=== PATIENT | male | born 1955 | race Caucasian/White ===

== ENCOUNTER 2018-08-01 09:54 | Emergency (ER) | payer BC, OTHER ==
--- OUTSIDE RECORDS SUMMARY | 2018-08-01 09:59 | XMS REPORT ---
:1955 Author Organization [facility] Address [address] [place] [address] Care Team Providers Name Role Phone FRANCES VILLAClayton Unavailable Unavailable Problems This patient has no known problems. Allergies, Adverse Reactions, Alerts This patient has no known allergies or adverse reactions. Medications This patient has no known medications. Results Test Description Test Time Test Comments Text Results Atomic Results Result Comments BASIC METABOLIC PANEL 2017-02-28 12:09:00 Test Item Value Reference Range Comments SODIUM (BEAKER) (test 139 meq/L 136-145 zfxx=414) POTASSIUM (BEAKER) (test 4.5 meq/L 3.5-5.1 syju=704) CHLORIDE (BEAKER) (test 104 meq/L 98-107 hqvc=707) CO2 (BEAKER) (test 26 meq/L 22-29 clvo=238) BLOOD UREA NITROGEN 18 mg/dL 7-21 (BEAKER) (test uylw=638) CREATININE (BEAKER) (test 0.77 mg/dL 0.57-1.25 rxbz=285) GLUCOSE RANDOM (BEAKER) 100 mg/dL 70-105 (test cugp=161) CALCIUM (BEAKER) (test 9.1 mg/dL 8.4-10.2 nyzi=986) EGFR (BEAKER) (test 102 mL/min/1.73 sq m ESTIMATED GFR IS NOT zzhl=8444) ACCURATE CREATININE CLEARANCE IN PREDICTING GLOMERULAR FILTRATION RATE. ESTIMATED GFR IS NOT APPLICABLE FOR DIALYSIS PATIENTS. CBC W/PLT COUNT & AUTO [id number] 12:03:00 Test Item Value Reference Range Comments WHITE BLOOD CELL COUNT (BEAKER) (test ejjq=866) 4.9 K/ L 4.0-10.0 RED BLOOD CELL COUNT (BEAKER) (test wmey=120) 4.18 M/ L 4.20-5.80 HEMOGLOBIN (BEAKER) (test mfaf=421) 14.1 GM/DL 13.0-16.8 HEMATOCRIT (BEAKER) (test rfji=606) 41.1 % 40.0-50.0 MEAN CORPUSCULAR VOLUME (BEAKER) (test tsjx=773) 98.4 fL 82.0-98.0 MEAN CORPUSCULAR HEMOGLOBIN (BEAKER) (test 33.7 pg 27.0-33.0 pzli=326) MEAN CORPUSCULAR HEMOGLOBIN CONC (BEAKER) (test 34.2 GM/DL 32.0-36.0 khon=737) RED CELL DISTRIBUTION WIDTH (BEAKER) (test 13.3 % 10.3-14.2 xwpl=297) PLATELET COUNT (BEAKER) (test safx=068) 152 K/CU MM 150-430 MEAN PLATELET VOLUME (BEAKER) (test icgl=800) 6.3 fL 6.5-10.5 NUCLEATED RED BLOOD CELLS (BEAKER) (test 0 /100 WBC 0-0 grpr=440) NEUTROPHILS RELATIVE PERCENT (BEAKER) (test 63 % ilgq=533) LYMPHOCYTES RELATIVE PERCENT (BEAKER) (test 28 % fqiy=626) MONOCYTES RELATIVE PERCENT (BEAKER) (test 7 % qekc=736) EOSINOPHILS RELATIVE PERCENT (BEAKER) (test 2 % tiwj=367) BASOPHILS RELATIVE PERCENT (BEAKER) (test 0 % cjax=406) NEUTROPHILS ABSOLUTE COUNT (BEAKER) (test 3.08 K/ L 1.80-8.00 zwrv=453) LYMPHOCYTES ABSOLUTE COUNT (BEAKER) (test 1.35 K/ L 1.48-4.50 zzsh=994) MONOCYTES ABSOLUTE COUNT (BEAKER) (test 0.33 K/ L 0.00-1.30 nmtc=727) EOSINOPHILS ABSOLUTE COUNT (BEAKER) (test 0.09 K/ L 0.00-0.50 bfwn=897) BASOPHILS ABSOLUTE COUNT (BEAKER) (test 0.02 K/ L 0.00-0.20 rvkl=668) 0.00VITAMIN [id number] 14:04:00 Test Item Value Reference Range Comments VITAMIN B12 (BEAKER) (test hggy=984) 710 pg/mL 213-816 TSH/FREE T4 IF [id number] 14:04:00 Test Item Value Reference Range Comments THYROID STIMULATING HORMONE (BEAKER) (test 0.52 uIU/mL 0.35-4.94 kyyc=946) HEMOGLOBIN [id number] 13:46:00 Test Item Value Reference Range Comments HEMOGLOBIN A1C (BEAKER) (test oyli=145) 5.1 % 4.3-6.1 LIPID [id number] 13:39:00 Test Item Value Reference Range Comments TRIGLYCERIDES (BEAKER) (test sbqx=399) 37 mg/dL CHOLESTEROL (BEAKER) (test ekqx=952) 242 mg/dL HDL CHOLESTEROL (BEAKER) (test gbjs=709) 68 mg/dL LDL CHOLESTEROL CALCULATED (BEAKER) (test 167 mg/dL icak=746) Triglyceride Reference Range: Low Risk <150 Borderline 150- 199 High Risk 200-499 Very High Risk >=500Cholesterol Reference Range: Low Risk <200 Borderline 200-239 High Risk > 240HDL Cholesterol Reference Range: Low Risk >=60 High Risk <40LDL Cholesterol Reference Range: Optimal <100 Near Optimal 100-129 Borderline 130-159 High 160-189 Very High >=190
--- OUTSIDE RECORDS SUMMARY | 2018-08-01 09:59 | XMS REPORT | Clinical Summary ---
:1955 Author Organization [facility] Address [address] [place] [address] Care Team Providers Name Role Phone Unavailable Primary Care Provider Unavailable Allergies No Known Allergies Medications Medication Sig Dispensed Refills Start Date End Date Status multivitamin per Take 1 tablet 0 Active tablet by mouth daily. b complex vitamins Take 1 tablet 0 Active tablet by mouth daily. aspirin 81 MG chewable Take 1 tablet 30 tablet 11 02/28/2017 02/28/2018 tablet (81 mg total) by mouth daily. atorvastatin (LIPITOR) Take 1 tablet 30 tablet 11 02/28/2017 02/28/2018 80 MG tablet (80 mg total) by mouth nightly. Active Problems Problem Noted Date Transient cerebral ischemia, unspecified type 02/28/2017 TIA (transient ischemic attack) 02/27/2017 Social History Tobacco Use Types Packs/Day Years Used Date Never Smoker Sex Assigned at Date Recorded Not on file Job Start Date Occupation Industry Not on file Not on file Not on file Travel History Travel Start Travel End No recent travel history available. Last Filed Vital Signs Not on file Plan of Treatment Not on file Results Not on fileafter 07/31/2017 Insurance Payer Benefit Plan / Group Subscriber ID Type Phone Address [facility] [employer] xxxxxxxxx [employer] - [employer] HMO POS QPOS xxxxxxxxx HMO/POS RD (Home) [address] [place] [id number] Advance Directives For more information, please contact:[place] [address] [place], [place] [phone] Code Status Date Activated Date Inactivated Comments Full Code 02/27/2017 11:48 AM 02/28/2017 8:08 PM This code status was determined by: Patient
[2018-08-01] MEDS ORDERED: ONDANSETRON 4 MG/2 ML VIAL ONE (10:27)
[2018-08-01] MEDS ORDERED: MORPHINE 4 MG/ML SYR ONE (10:27)
[2018-08-01 10:35] LABS: Absolute Lymphocytes (CBC) 0.9 K/uL (0.7-4.9); Absolute Monocytes 0.2 K/uL (0.1-1.3); Absolute Neutrophil 4.2 K/uL (1.8-8.0); Basophils % 0.7 % (0-1.3); Eosinophils % 0.8 % (0-4.4); Hematocrit 41.9 % (39.6-49.0); MCH 31.4 pg (27.0-35.0); MCV 92.3 fL (80-100); MPV 7.3 fL (7.6-11.3); Monocytes % 3.2 % (3.3-12.3); RBC Red Blood Cell Count 4.54 M/uL (4.33-5.43)
[2018-08-01 10:47] LABS: Potassium 3.7 mmol/L (3.5-5.1)
--- NOTE | 2018-08-01 10:51 | EDPHYS ---
Physician Documentation [facility] Name: Srinivasan Armstrong Age: 62 yrs Sex: Male : 1955 Arrival Date: 08/01/2018 Time: 10:00 Bed 3 Private MD: None, None ED Physician Calos Flores HPI: 08/01 10:41 This 62 yrs old Male presents to ER via Wheelchair with complaints of gs Abdominal Pain. 10:41 The patient presents with swelling, that is moderate, of the right inguinal area. gs Onset: The symptoms/episode began/occurred today. Associated signs and symptoms: Pertinent negatives: abdominal pain, nausea, vomiting. Severity of symptoms: At their worst the symptoms were moderate, in the emergency department the symptoms are unchanged. The patient has experienced similar episodes in the past, multiple times, chronically. The patient has not recently seen a physician. Historical: - Allergies: 10:16 No Known Allergies; aa5 - PMHx: 10:16 TIA 2017; aa5 - PSHx: 10:16 right shoulder; aa5 - Immunization history:: Flu vaccine is not up to date. - Social history:: Smoking status: Patient/guardian denies using tobacco. - Ebola Screening: : No symptoms or risks identified at this time. ROS: 10:41 All other systems are negative. gs Exam: 10:41 Head/Face: Normocephalic, atraumatic. Eyes: Pupils equal round and reactive to light, gs extra-ocular motions intact. Lids and lashes normal. Conjunctiva and sclera are non-icteric and not injected. Cornea within normal limits. Periorbital areas with no swelling, redness, or edema. ENT: Nares patent. No nasal discharge, no septal abnormalities noted. Tympanic membranes are normal and external auditory canals are clear. Oropharynx with no redness, swelling, or masses, exudates, or evidence of obstruction, uvula midline. Mucous membranes moist. Neck: Trachea midline, no thyromegaly or masses palpated, and no cervical lymphadenopathy. Supple, full range of motion without nuchal rigidity, or vertebral point tenderness. No Meningismus. 10:41 Chest/axilla: Normal chest wall appearance and motion. Nontender with no deformity. No lesions are appreciated. Cardiovascular: Regular rate and rhythm with a normal S1 and S2. No gallops, murmurs, or rubs. Normal PMI, no JVD. No pulse deficits. Respiratory: Lungs have equal breath sounds bilaterally, clear to auscultation and percussion. No rales, rhonchi or wheezes noted. No increased work of breathing, no retractions or nasal flaring. Abdomen/GI: Soft, non-tender, with normal bowel sounds. No distension or tympany. No guarding or rebound. No evidence of tenderness throughout. Skin: Warm, dry with normal turgor. Normal color with no rashes, no lesions, and no evidence of cellulitis. MS/ Extremity: Pulses equal, no cyanosis. Neurovascular intact. Full, normal range of motion. Neuro: Awake and alert, GCS 15, oriented to person, place, time, and situation. Cranial nerves II-XII grossly intact. Motor strength 5/5 in all extremities. Sensory grossly intact. Cerebellar exam normal. Normal gait. 10:41 Constitutional: The patient appears alert, awake. 10:41 Constitutional: The patient appears uncomfortable. 10:41 : Male external genitalia: swelling, tenderness, is palpated in the right inguinal area, that is moderate. Vital Signs: 10:16 BP 154 / 77; Pulse 74; Resp 18 S; Temp 98.8(O); Pulse Ox 100% on R/A; Weight 87.09 kg aa5 (R); Height 5 ft. 11 in. (180.34 cm) (R); Pain 8/10; 11:00 BP 148 / 76; Pulse 70; Resp 15; Pulse Ox 100% on R/A; Pain 0/10; hb 10:16 Body Mass Index 26.78 (87.09 kg, 180.34 cm) aa5 MDM: 10:18 Patient medically screened. 10:41 Differential diagnosis: direct hernia. indirect hernia. incarcerated. Data reviewed: vital signs, nurses notes. Counseling: I had a detailed discussion with the patient and/or guardian regarding: the historical points, exam findings, and any diagnostic results supporting the discharge/admit diagnosis, the need for outpatient follow up. Response to treatment: the patient's symptoms have resolved after treatment, pt self reduced. 08/01 10:44 Order name: CBC with Automated Diff EDMS 08/01 10:48 Order name: Basic Metabolic Panel EDMS Administered Medications: No medications were administered Disposition: 08/01/18 10:50 Discharged to Home. Impression: Inguinal hernia. - Condition is Stable. - Discharge Instructions: Hernia, Adult, [id number]. - Medication Reconciliation Form, Thank You Letter, Antibiotic Education, Prescription Opioid Use form. - Follow up: Huan Thomson MD; When: 2 - 3 days; Reason: Re-evaluation by your physician. Signatures: Dispatcher [employer] EDJulia Christina RN RN aa5 Ariana Tijerina RN RN Calos Flores MD MD gs Corrections: (The following items were deleted from the chart) 11:14 10:50 08/01/2018 10:50 Discharged to Home. Impression: Inguinal hernia. Condition is hb Stable. Forms are Medication Reconciliation Form, Thank You Letter, Antibiotic Education, Prescription Opioid Use. Follow up: Huan Thomson; When: 2 - 3 days; Reason: Re-evaluation by your physician. gs
--- NOTE | 2018-08-01 10:51 | ER ---
Nurse's Notes [facility] Name: Srinivasan Armstrong Age: 62 yrs Sex: Male : 1955 Arrival Date: 08/01/2018 Time: 10:00 Bed 3 Private MD: None, None Diagnosis: Inguinal hernia Presentation: 08/01 10:05 Presenting complaint: Patient states: right groin pain and right testicular pain that aa5 began 2 weeks ago. Pt states "I was working today and the pain got way worse and I started breaking into a sweat". 10:05 Transition of care: patient was not received from another setting of care. Onset of aa5 symptoms was July 2018. Risk Assessment: Do you want to hurt yourself or someone else? Patient reports no desire to harm self or others. Initial Sepsis Screen: Does the patient meet any 2 criteria? No. Patient's initial sepsis screen is negative. Does the patient have a suspected source of infection? No. Patient's initial sepsis screen is negative. Care prior to arrival: None. 10:05 Method Of Arrival: Wheelchair aa5 10:05 Acuity: MEREDITH 2 aa5 Historical: - Allergies: 10:16 No Known Allergies; aa5 - PMHx: 10:16 TIA 2017; aa5 - PSHx: 10:16 right shoulder; aa5 - Immunization history:: Flu vaccine is not up to date. - Social history:: Smoking status: Patient/guardian denies using tobacco. - Ebola Screening: : No symptoms or risks identified at this time. Screenin:30 Abuse screen: Denies threats or abuse. Denies injuries from another. Nutritional hb screening: No deficits noted. Tuberculosis screening: No symptoms or risk factors identified. Fall Risk None identified. Assessment: 10:25 General: Appears in no apparent distress. Behavior is calm, cooperative. Pain: Pain hb currently is 7 out of 10 on a pain scale. Neuro: Level of Consciousness is awake, alert, obeys commands, Oriented to person, place, time, situation. Cardiovascular: Capillary refill < 3 seconds Patient's skin is warm and dry. Respiratory: Airway is patent Trachea midline Respiratory effort is even, unlabored, Respiratory pattern is regular, symmetrical, Breath sounds are clear bilaterally. GI: Abdomen is flat, Bowel sounds present X 4 quads. Abd is soft and non tender X 4 quads. : No signs and/or symptoms were reported regarding the genitourinary system. EENT: No signs and/or symptoms were reported regarding the EENT system. Derm: Skin is intact, is healthy with good turgor, Skin is pink, warm \\T\\ dry. Musculoskeletal: Reports right inguinal and right testicular pain. Vital Signs: 10:16 BP 154 / 77; Pulse 74; Resp 18 S; Temp 98.8(O); Pulse Ox 100% on R/A; Weight 87.09 kg aa5 (R); Height 5 ft. 11 in. (180.34 cm) (R); Pain 8/10; 11:00 BP 148 / 76; Pulse 70; Resp 15; Pulse Ox 100% on R/A; Pain 0/10; hb 10:16 Body Mass Index 26.78 (87.09 kg, 180.34 cm) [facility] ED Course: 10:00 Patient arrived in ED. mr 10:00 None, None is Private Physician. mr 10:05 Arm band placed on. [facility] 10:11 Triage completed. [facility] 10:13 Calos Flores MD is Attending Physician. gs 10:15 Patient has correct armband on for positive identification. Placed in gown. Bed in low hb position. Call light in reach. Side rails up X 1. 10:26 Inserted saline lock: 20 gauge in right antecubital area, using aseptic technique. hb Blood collected. 10:50 Huan Thomson MD is Referral Physician. gs 11:01 Ariana Tijerina RN is Primary Nurse. hb 11:03 No provider procedures requiring assistance completed. IV discontinued, intact, hb bleeding controlled, No redness/swelling at site. Pressure dressing applied. Administered Medications: No medications were administered Outcome: 10:50 Discharge ordered by . gs 11:03 Discharged to home ambulatory, with family. hb 11:03 Condition: stable 11:03 Discharge instructions given to patient, family, Instructed on discharge instructions, follow up and referral plans. medication usage, Demonstrated understanding of instructions, follow-up care, medications. 11:14 Patient left the ED. hb Signatures: Alma PrinceJulia RN RN [facility] Ariana Tijerina RN RN Calos Flores MD MD
== END 2018-08-01 11:14 | disposition home or self-care (01) ==
LOC: ER 09:54
DX: K40.90 Unilateral inguinal hernia, without obstruction or gangrene, not specified as recurrent (principal); Z86.73 Personal history of transient ischemic attack (TIA), and cerebral infarction without residual deficits
CPT/HCPCS: 36415; 80048; 85025; 99283; J2405

== ENCOUNTER 2019-08-07 07:17 | Day surgery (SDC) | payer OTHER ==
[2019-08-04 11:49] LABS: Absolute Lymphocytes (CBC) 1.1 K/uL (0.7-4.9); Basophils % 0.9 % (0-1.3); Hematocrit 41.3 % (39.6-49.0); Lymphocytes % 24.5 % (15.3-44.8); MPV 7.2 fL (7.6-11.3); RBC Red Blood Cell Count 4.51 M/uL (4.33-5.43)
--- NOTE | 2019-08-04 11:50 | RAD REPORT ---
EXAM DESCRIPTION: RAD - Chest Pa And Lat (2 Views) - 08/04/2019 11:40 am CLINICAL HISTORY: preop Chest pain. COMPARISON: <Comparisons> FINDINGS: The lungs are clear. The heart is normal in size. No displaced fractures. Evidence of prev ious right rotator cuff repair. IMPRESSION: No acute or concerning finding suspected.
[2019-08-04 12:00] LABS: BUN Blood Urea Nitrogen 25 mg/dL (7-18); Bicarbonate 29 mmol/L (21-32); Glucose Level 97 mg/dL (74-106); Potassium 4.1 mmol/L (3.5-5.1); Sodium Level 141 mmol/L (136-145)
--- NOTE | 2019-08-06 12:50 | EKG ---
Test Date: 2019-08-04 Test Time: 11:16:54 Processor Inspector: JP MEASUREMENT RESULTS: Intervals: Rate: 73 ME: 164 QRSD: 98 QT: 402 QTc: 442 [place]: P: 68 ME: 164 QRS: 65 T: 55 INTERPRETIVE STATEMENTS: Normal sinus rhythm Normal ECG Compared to ECG 02/27/2017 05:47:34 No significant changes Electronically Signed On 08-06-19 12:45:50 COLLECTIONS ATTORNEY by Aly Angeles
--- OUTSIDE RECORDS SUMMARY | 2019-08-07 07:30 | XMS REPORT ---
:1955 Author Organization [facility] Address [address] [place] [address] Care Team Providers Name Role Phone FRANCES [...] Comments SODIUM (BEAKER) (test 139 meq/L 136-145 foev=179) POTASSIUM (BEAKER) (test 4.5 meq/L 3.5-5.1 vnqp=263) CHLORIDE (BEAKER) (test 104 meq/L 98-107 yznt=489) CO2 (BEAKER) (test 26 meq/L 22-29 fqac=587) BLOOD UREA NITROGEN 18 mg/dL 7-21 (BEAKER) (test ehkl=704) CREATININE (BEAKER) (test 0.77 mg/dL 0.57-1.25 phxi=054) GLUCOSE RANDOM (BEAKER) 100 mg/dL 70-105 (test nbva=425) CALCIUM (BEAKER) (test 9.1 mg/dL 8.4-10.2 lzev=160) EGFR (BEAKER) (test 102 mL/min/1.73 sq m ESTIMATED GFR IS NOT tynn=6322) ACCURATE CREATININE CLEARANCE IN PREDICTING GLOMERULAR FILTRATION RATE. ESTIMATED GFR IS NOT APPLICABLE FOR DIALYSIS PATIENTS. CBC W/PLT COUNT & AUTO [id number] 12:03:00 Test Item Value Reference Range Comments WHITE BLOOD CELL COUNT (BEAKER) (test fyja=623) 4.9 K/ L 4.0-10.0 RED BLOOD CELL COUNT (BEAKER) (test eycj=764) 4.18 M/ L 4.20-5.80 HEMOGLOBIN (BEAKER) (test apli=184) 14.1 GM/DL 13.0-16.8 HEMATOCRIT (BEAKER) (test dbxc=873) 41.1 % 40.0-50.0 MEAN CORPUSCULAR VOLUME (BEAKER) (test vmxz=304) 98.4 fL 82.0-98.0 MEAN CORPUSCULAR HEMOGLOBIN (BEAKER) (test 33.7 pg 27.0-33.0 eoil=304) MEAN CORPUSCULAR HEMOGLOBIN CONC (BEAKER) (test 34.2 GM/DL 32.0-36.0 jqjx=846) RED CELL DISTRIBUTION WIDTH (BEAKER) (test 13.3 % 10.3-14.2 uhtk=976) PLATELET COUNT (BEAKER) (test ppba=502) 152 K/CU MM 150-430 MEAN PLATELET VOLUME (BEAKER) (test kqwi=789) 6.3 fL 6.5-10.5 NUCLEATED RED BLOOD CELLS (BEAKER) (test 0 /100 WBC 0-0 vzgn=967) NEUTROPHILS RELATIVE PERCENT (BEAKER) (test 63 % wnoa=431) LYMPHOCYTES RELATIVE PERCENT (BEAKER) (test 28 % isww=186) MONOCYTES RELATIVE PERCENT (BEAKER) (test 7 % vchh=654) EOSINOPHILS RELATIVE PERCENT (BEAKER) (test 2 % pzun=129) BASOPHILS RELATIVE PERCENT (BEAKER) (test 0 % uupk=248) NEUTROPHILS ABSOLUTE COUNT (BEAKER) (test 3.08 K/ L 1.80-8.00 kiwa=543) LYMPHOCYTES ABSOLUTE COUNT (BEAKER) (test 1.35 K/ L 1.48-4.50 dwma=397) MONOCYTES ABSOLUTE COUNT (BEAKER) (test 0.33 K/ L 0.00-1.30 flbj=150) EOSINOPHILS ABSOLUTE COUNT (BEAKER) (test 0.09 K/ L 0.00-0.50 ixmh=429) BASOPHILS ABSOLUTE COUNT (BEAKER) (test 0.02 K/ L 0.00-0.20 zwrb=718) 0.00VITAMIN [id number] 14:04:00 Test Item Value Reference Range Comments VITAMIN B12 (BEAKER) (test iaoz=540) 710 pg/mL 213-816 TSH/FREE T4 IF [id number] 14:04:00 Test Item Value Reference Range Comments THYROID STIMULATING HORMONE (BEAKER) (test 0.52 uIU/mL 0.35-4.94 cuig=260) HEMOGLOBIN [id number] 13:46:00 Test Item Value Reference Range Comments HEMOGLOBIN A1C (BEAKER) (test twrh=938) 5.1 % 4.3-6.1 LIPID [id number] 13:39:00 Test Item Value Reference Range Comments TRIGLYCERIDES (BEAKER) (test aphw=644) 37 mg/dL CHOLESTEROL (BEAKER) (test seqn=287) 242 mg/dL HDL CHOLESTEROL (BEAKER) (test uztf=408) 68 mg/dL LDL CHOLESTEROL CALCULATED (BEAKER) (test 167 mg/dL xarw=304) Triglyceride Reference Range: Low Risk <150 Borderline 150- 199 High Risk 200-499 Very High Risk >=500Cholesterol Reference Range: Low Risk <200 Borderline 200-239 High Risk > 240HDL Cholesterol Reference Range: Low Risk >=60 High Risk <40LDL Cholesterol Reference Range: Optimal <100 Near Optimal 100-129 Borderline 130-159 High 160-189 Very High >=190
[2019-08-07] MEDS ORDERED: Ringers Lactate 1,000 ML IV ONE ×2 (07:34→10:41)
[2019-08-07] MEDS ORDERED: CEFAZOLIN/SWI 1gm 1 GM/10 ML SYR ONE (07:34)
[2019-08-07] MEDS ORDERED: PROPOFOL 200 MG/20 ML VIAL IV ONE (08:05)
[2019-08-07] MEDS ORDERED: GLYCOPYRROLATE 0.2 MG/ML SYR ONE (08:05)
[2019-08-07] MEDS ORDERED: MIDAZOLAM HCL 2 MG/2 ML INJ ONE (08:05)
[2019-08-07] MEDS ORDERED: FENTANYL CITR 250 MCG/5 ML ONE (08:05)
[2019-08-07] MEDS ORDERED: LIDOCAINE 2% MPF 5 ML VIAL ONE (08:05)
[2019-08-07] MEDS ORDERED: ROCURONIUM 50 MG/5 ML VIAL IV ONE (08:06)
[2019-08-07] MEDS ORDERED: dexAMETHasone 10 MG/ML VIAL ONE (08:08)
--- NOTE | 2019-08-07 08:47 | P.BOP ---
Preoperative diagnosis: right inguinal hernia Postoperative diagnosis: same Primary procedure: laparoscopic repair of right inguinal hernia with mesh Peripheral Vascular Tech: HOLGER BURDICK (FLEXO PRESS OPERATOR) Estimated blood loss: <10cc Specimen: none Findings: right inguinal hernia Anesthesia: General Complications: None Implants: mesh Transferred to: Recovery Room Condition: Good
[2019-08-07] MEDS ORDERED: KETOROLAC 30 MG/ML INJ ONE (09:34)
[2019-08-07] MEDS ORDERED: ONDANSETRON 4 MG/2 ML VIAL ONE (10:14)
[2019-08-07] MEDS ORDERED: CODEINE 30MG/APAP 300MG TAB ONE (11:43)
[2019-08-07 13:32] VITALS: BP 141/71; TEMP 99; O2SAT 97
--- NOTE | 2019-08-15 00:53 | OP ---
Date of Procedure: 08/07/2019 Surgeon: Huan Thomson MD Industrial Waste Inspector: VLADISLAV Loaiza. Preoperative Diagnosis: Right inguinal hernia. Postoperative Diagnosis: Right inguinal hernia. Procedures: Laparoscopic repair of right inguinal hernia with mesh. Estimated Blood Loss: Less than 10 mL. Specimen: None. Findings: Right inguinal hernia. Anesthesia: General plus local. Implants: 3D mesh. Indications: This is the case of a 64-year-old patient, who comes to us with above diagnosis. Fully explained the benefits, alternatives, and risks of laparoscopic, possible open repair of right ingui nal hernia with mesh, which include, but not limited to infection, bleeding, damage to adjacent struc tures, anesthesia complications, chronic pain, chronic numbness, MD, and even . He also underst ands this may not relieve any symptoms, he might need more than one surgical intervention. He unders tands the use of mesh placement. Pros and cons of mesh placed were discussed with the patient and al pawel the questions were answered to his satisfaction to the point that he did allow me to use mesh. Description Of Procedure: Patient was brought to the operating room, placed in supine position. Ane sthesia was given without complication. Time-out was called. Right inguinal area and abdomen were p repped and draped in a sterile fashion. A small incision was made in the infraumbilical region. Inc ision was carried down until we find the anterior rectus sheath and we opened that on the right side and the muscle retracted laterally to expose the posterior rectus sheath. The extraperitoneal space was gently developed with blunt dissection and balloon-tipped catheter space maker single was placed in the area directed towards the pubic symphysis. A laparoscope was introduced through that space bhavik russ and the balloon was inflated under direct visualization creating the extraperitoneal spa ce. The balloon was deflated and removed under direct visualization. After that we insufflated the area. A 5 mm trial was placed in the area of the pubic symphysis and another one skilled nursing between the first and the second one. The preperitoneal space was further developed by exposing the inferior ep igastric vessels and keeping them anterior to the dissection. Sherif's ligament was dissected latera lly to the junction with the iliac veins. The dissection was continued inferiorly to the iliopubic t ract, avoiding damage to the femoral branch of the genitofemoral nerve and the lateral femoral cutane ous nerve. The cord structures were carefully skeletonized. The hernia sac was identified and reduc ed by gentle traction into the peritoneal cavity. I proceeded to place a 3D mesh over the area throu gh one of the trocar sites after rolling that longitudinally. We arranged the area to cover direct a nd indirect spaces. The mesh was secured in place with SorbaFix laterally and superior to the iliopu bic tract and inferior and medial to the Sherif's ligament. The area was inspected once again. No b leeding. While holding the mesh in place and making sure the hernia sac is still reduced into the pe ritoneal cavity, we proceeded to deflate the area under direct visualization and removed the trocars. Patient tolerated the procedure well. The anterior rectus sheath was closed with #1 Vicryl and the skin approximated. Sponge count and instrument counts were correct. At the end of the case, testic les were in the scrotum. Patient was sent to the Recovery in stable condition. GINA Voice ID: [id number] Report ID: [id number]
--- NOTE | 2019-08-15 01:09 | OP ---
Surgeon: Huan Thomson MD Diagnosis: Right inguinal hernia. Procedure: Laparoscopic repair of right inguinal hernia with mesh. Disposition: Home. Activity: As tolerated. No heavy lifting. Followup: Follow up in my office in 1 week. Call for appointment [phone]. Keep area dry for 48 ho urs, then may shower. Cold compress over the right inguinal region for 24 hours. Medications: See orders. LILY/KRISTY Voice ID: [id number] Report ID: [id number]
== END 2019-08-07 12:50 | disposition home or self-care (01) ==
LOC: OR 07:17
PROVIDERS: ATTEND Surgery
PROC: 0YU54JZ Supplement Right Inguinal Region with Synthetic Substitute, Percutaneous Endoscopic Approach (ICD-10-PCS; principal; 2019-08-07 08:30)
DX: K40.90 Unilateral inguinal hernia, without obstruction or gangrene, not specified as recurrent (principal); Z86.73 Personal history of transient ischemic attack (TIA), and cerebral infarction without residual deficits; Z83.3 Family history of diabetes mellitus
CPT/HCPCS: 93005; 85025; 80048; 36415; 71046; 49650; J2704; J2250; J3010; J1100; J0690; J7120 ×2; J2405

== ENCOUNTER 2021-09-17 07:13 | Day surgery (SDC) | payer OTHER ==
[2021-09-16 15:28] LABS: Absolute Lymphocytes (CBC) 1.7 K/uL (0.7-4.9); Basophils % 1.1 % (0-1.3); Hematocrit 38.6 % (39.6-49.0); Lymphocytes % 30.8 % (15.3-44.8); MPV 6.7 fL (7.6-11.3); RBC Red Blood Cell Count 4.27 M/uL (4.33-5.43)
--- NOTE | 2021-09-16 15:30 | RAD REPORT ---
EXAM DESCRIPTION: RAD - Chest Pa And Lat (2 Views) - 09/16/2021 3:16 pm CLINICAL HISTORY: Pre op pending hernia surgery COMPARISON: Chest Pa And Lat (2 Views) dated 08/04/2019; Chest Single View dated 02/27/2017 FINDINGS: Lines: None. Lungs: No evidence of edema or pneumonia. Pleural: No significant pleural effusions or pneumothorax. Cardiac: The heart size is within normal limits. Bones: No acute fractures. Soft tissue anchors in the humeral head. Other: IMPRESSION: No acute cardiopulmonary disease.
[2021-09-16 15:38] LABS: Potassium 3.9 mmol/L (3.5-5.1)
[2021-09-17] MEDS ORDERED: Ringers Lactate 1,000 ML IV ONE (07:30)
[2021-09-17] MEDS ORDERED: propofoL 200 MG/20 ML VIAL IV ONE (10:15)
[2021-09-17] MEDS ORDERED: ONDANSETRON 4 MG/2 ML VIAL ONE (10:15)
[2021-09-17] MEDS ORDERED: LIDOCAINE 2% MPF 5 ML VIAL ONE (10:15)
[2021-09-17] MEDS ORDERED: MIDAZOLAM HCL 2 MG/2 ML INJ ONE (10:15)
[2021-09-17] MEDS ORDERED: FENTANYL CITR 100 MCG/2 ML ONE (10:15)
[2021-09-17] MEDS ORDERED: ROCURONIUM 50 MG/5 ML VIAL IV ONE (10:18)
[2021-09-17] MEDS ORDERED: GLYCOPYRROLATE 0.2 MG/ML SYR ONE ×2 (10:19→10:20)
[2021-09-17] MEDS: BUPIVACAINE 0.5% PF 10 ML VIAL ONE ×2 (10:21→11:20)
[2021-09-17] MEDS: CEFAZOLIN/NS 1gm 1 GM/50 ML BAG ONE ×2 (10:22→10:50)
[2021-09-17] MEDS ORDERED: NEOSTIGMINE 1 MG/ML -5 ML ONE (10:22)
[2021-09-17] MEDS ORDERED: EPHEDRINE SULF 50 MG/ML VIAL ONE (11:30)
--- NOTE | 2021-09-17 11:58 | P.BOP ---
Preoperative diagnosis: tender left inguinal hernia Postoperative diagnosis: same Primary procedure: Laparoscopic repair of tender left inguinal hernia with mesh Plant Nursery Worker: Cindy Melara) Estimated blood loss: <10cc Specimen: none Findings: left inguinal hernia Anesthesia: General Complications: None Transferred to: Recovery Room Condition: Good
[2021-09-17] MEDS: HYDROMORPHONE HCL 1 MG/ML INJ ONE ×2 (12:34→12:42)
[2021-09-17] MEDS ORDERED: CODEINE 30MG/APAP 300MG TAB ONE (13:14)
[2021-09-17 13:19] VITALS: BP 140/85; TEMP 97.5; O2SAT 98
--- NOTE | 2021-09-17 21:15 | OP ---
Date of Procedure: 09/17/2021 Surgeon: Huan Thomson MD Supervisor Steno Pool: LOU Rice, VLADISLAV. Preoperative Diagnosis: Tender left inguinal hernia. Postoperative Diagnosis: Tender left inguinal hernia. Procedure: Laparoscopic repair of tender left inguinal hernia with mesh. Estimated Blood Loss: Less than 10 cc. Findings: Left inguinal hernia. Anesthesia: General plus local. Indications: This is a case of a male who comes to us with a left inguinal hernia. The benefits, al ternatives, and risks of laparoscopic, possible open repair of tender left inguinal hernia with mesh were fully explained which include, but not limited to infection, bleeding, damage to adjacent struct ures, anesthesia complication, recurrence, MN, and . He also understands this may not relieve t he symptoms. He might need more than one surgical intervention. He also explained a possible use of mesh in that region. Pros and cons of mesh placement were discussed with the patient. After answer ing all his questions to satisfaction, he did allow for the use of mesh. Description Of Procedure: The area of concern was marked by me and the patient in the holding room. The patient brought to the operating room, placed in supine position. Anesthesia was done without co mplication. Abdomen and left inguinal region were prepped and draped in a sterile fashion. Marcaine 0.5% was injected for every area to be incised. First incision was done in the infraumbilical regio n. Incision was carried down until we found the anterior rectus sheath that was opened. Muscle retr acted laterally to expose the posterior rectus sheath. The extraperitoneal space was gently develope d with the help of blunt dissection and a balloon tipped Spacemaker trocar was placed in that area di rected towards the pubic symphysis. The balloon was inflated under direct visualization. After that , we proceeded to deflate the balloon and removed it intact. After that, we insufflated the area wit h clear visualization. Under direct visualization, we proceeded to place a 5 mm trocar just about th e pubis symphysis and another one fpc between the first and the second one. The preperitoneal sp francisco was further developed by exposing the inferior epigastric vessels and keeping them anterior. Customs Entry Clerk per ligament was dissected laterally to the junction with the iliac veins, avoiding any bleeding. Th e dissection was continued inferiorly to the iliopubic tract avoiding damage to the femoral branch of the genitofemoral nerve and the lateral femoral cutaneous nerve. The cord structures were skeletoni zed. The hernia sac was identified, reduced into the abdominal cavity with gentle traction. The spe rmatic cord structures were identified, skeletonized and protected. At that moment, I proceeded to i ntroduce over the area a 3D mesh. The mesh was aligned to cover direct and indirect spaces. The mes h was secured in place with the help of SorbaFix lateral and superior to the iliopubic tract and infe rior and medial to the Sherif ligament. At that moment, we resecured hemostasis on this patient. We proceeded then to stop the insufflation and allowed that to escape. The mesh was secured in place wh ile we deflated the area. The trocars were removed under direct visualization. No bleeding. The fas candy was closed with #1 Vicryl. Subcutaneous tissue closed with 3-0 chromic in subcuticular fashion w ith 3-0 chromic with Steri-Strip on top. Sponge count and instrument counts correct. The patient to lerated the procedure well. The patient was sent to recovery in stable condition. LILY/KRISTY Voice ID: [id number] Report ID: [id number]
--- NOTE | 2021-09-17 21:15 | DS ---
Date of Discharge: 09/17/2021 Diagnosis: Tender left inguinal hernia. Procedure: Laparoscopic repair of tender left inguinal hernia with mesh. Disposition: Home. Activity: As tolerated. No heavy lifting. Plan: Follow up in my office in 1 week. Call for appointment [phone]. Keep area dry for 48 hours, t hen may shower. Cold compress to the left inguinal region for 24 hours. Medications: See orders. LILY/KRISTY Voice ID: [id number] Report ID: [id number]
== END 2021-09-17 14:30 | disposition home or self-care (01) ==
LOC: OR 07:13
PROVIDERS: ATTEND Surgery
PROC: 0YU64JZ Supplement Left Inguinal Region with Synthetic Substitute, Percutaneous Endoscopic Approach (ICD-10-PCS; principal; 2021-09-17 09:00)
DX: K40.90 Unilateral inguinal hernia, without obstruction or gangrene, not specified as recurrent (principal); Z20.822 Contact with and (suspected) exposure to COVID-19
CPT/HCPCS: 93005; 85025; 80048; 36415; 71046; 49650; U0003; J2704; J2250; J3010; J1170; J2710; J0690; J7120; J2405

== ENCOUNTER 2022-02-09 09:58 | Emergency (ER) | payer OTHER ==
--- OUTSIDE RECORDS SUMMARY | 2022-02-09 10:00 | XMS REPORT | Continuity of Care Document ---
:1955 Author Organization [facility] t Address [facility] [address] [place] [address] Care Team Providers Name Role Phone Sharona VILLA Attending Clinician Unavailable Sharona VILLA Admitting Clinician Unavailable Problems This patient has no known problems. Allergies, Adverse Reactions, Alerts This patient has no known allergies or adverse reactions. Medications This patient has no known medications. Procedures This patient has no known procedures. Results Test Description Test Time Test Comments Results Result Comments Source BASIC METABOLIC PANEL 2017-02-28 12:09:00 Test Item Value Reference Range Interpretation Comme nts SODIUM (BEAKER) (test code 139 meq/L 136-145 = 381) POTASSIUM (BEAKER) (test 4.5 meq/L 3.5-5.1 code = 379) CHLORIDE (BEAKER) (test 104 meq/L 98-107 code = 382) CO2 (BEAKER) (test code = 26 meq/L 22-29 355) BLOOD UREA NITROGEN 18 mg/dL 7-21 (BEAKER) (test code = 354) CREATININE (BEAKER) (test 0.77 mg/dL 0.57-1.25 code = 358) GLUCOSE RANDOM (BEAKER) 100 mg/dL 70-105 (test code = 652) CALCIUM (BEAKER) (test 9.1 mg/dL 8.4-10.2 code = 697) EGFR (BEAKER) (test code = 102 mL/min/1.73 sq m ESTIMATED GFR IS NOT 1092) ACCURATE CRE ATININE CLEARANCE IN AR EDICTING GLOMERULAR FILT RATION RATE. ESTIMATED GFR IS NOT APPLICABLE FOR DIALYSIS PATIENTS. CBC W/PLT COUNT & AUTO [id number] 12:03:00 Test Item Value Reference Range Interpretation Comments WHITE BLOOD CELL COUNT (BEAKER) 4.9 K/ L 4.0-10.0 (test code = 775) RED BLOOD CELL COUNT (BEAKER) 4.18 M/ L 4.20-5.80 L (test code = 761) HEMOGLOBIN (BEAKER) (test code = 14.1 GM/DL 13.0-16.8 410) HEMATOCRIT (BEAKER) (test code = 41.1 % 40.0-50.0 411) MEAN CORPUSCULAR VOLUME (BEAKER) 98.4 fL 82.0-98.0 H (test code = 753) MEAN CORPUSCULAR HEMOGLOBIN 33.7 pg 27.0-33.0 H (BEAKER) (test code = 751) MEAN CORPUSCULAR HEMOGLOBIN CONC 34.2 GM/DL 32.0-36.0 (BEAKER) (test code = 752) RED CELL DISTRIBUTION WIDTH 13.3 % 10.3-14.2 (BEAKER) (test code = 412) PLATELET COUNT (BEAKER) (test 152 K/CU MM 150-430 code = 756) MEAN PLATELET VOLUME (BEAKER) 6.3 fL 6.5-10.5 L (test code = 754) NUCLEATED RED BLOOD CELLS 0 /100 WBC 0-0 (BEAKER) (test code = 413) NEUTROPHILS RELATIVE PERCENT 63 % (BEAKER) (test code = 429) LYMPHOCYTES RELATIVE PERCENT 28 % (BEAKER) (test code = 430) MONOCYTES RELATIVE PERCENT 7 % (BEAKER) (test code = 431) EOSINOPHILS RELATIVE PERCENT 2 % (BEAKER) (test code = 432) BASOPHILS RELATIVE PERCENT 0 % (BEAKER) (test code = 437) NEUTROPHILS ABSOLUTE COUNT 3.08 K/ L 1.80-8.00 (BEAKER) (test code = 670) LYMPHOCYTES ABSOLUTE COUNT 1.35 K/ L 1.48-4.50 L (BEAKER) (test code = 414) MONOCYTES ABSOLUTE COUNT (BEAKER) 0.33 K/ L 0.00-1.30 (test code = 415) EOSINOPHILS ABSOLUTE COUNT 0.09 K/ L 0.00-0.50 (BEAKER) (test code = 416) BASOPHILS ABSOLUTE COUNT (BEAKER) 0.02 K/ L 0.00-0.20 (test code = 417) 0.00VITAMIN [id number] 14:04:00 Test Item Value Reference Range Interpretation Comments VITAMIN B12 (BEAKER) (test code = 710 pg/mL 213-816 774) TSH/FREE T4 IF [id number] 14:04:00 Test Item Value Reference Range Interpretation Comments THYROID STIMULATING HORMONE 0.52 uIU/mL 0.35-4.94 (BEAKER) (test code = 772) HEMOGLOBIN [id number] 13:46:00 Test Item Value Reference Range Interpretation Comments HEMOGLOBIN A1C (BEAKER) (test code = 5.1 % 4.3-6.1 368) LIPID [id number] 13:39:00 Test Item Value Reference Range Interpretation Comments TRIGLYCERIDES (SOLOMO365AKER) (test code = 37 mg/dL 540) CHOLESTEROL ([place]) (test code = 242 mg/dL 631) HDL CHOLESTEROL ([place]) (test code 68 mg/dL = 976) LDL CHOLESTEROL CALCULATED ([place]) 167 mg/dL (test code = 633) Triglyceride Reference Range: Low Risk <150 Borderline 150-199 High Risk 200-499 Very High Risk >=500Cholesterol Reference Range: Low Risk <200 Borderline 200-239 High Risk >240HDL Cholesterol Reference Range: Low Risk >=60 High Risk <40LDL Cholesterol Reference Range: Optimal <100 Near Optimal 100-129 Borderline 130-159 High 160-189 Very High >=190
--- NOTE | 2022-02-09 11:52 | ER ---
Nurse's Notes [facility] Name: Srinivasan Armstrong Age: 66 yrs Sex: Male : 1955 Arrival Date: 02/09/2022 Time: 10:01 Bed 10 Private MD: Diagnosis: Cellulitis and acute lymphangitis of other parts of limb-left forearm Presentation: 02/09 10:17 Chief complaint: Patient states: R hand pain, redness, swelling since Wednesday. No known ll1 fever. Coronavirus screen: Vaccine status: Patient reports receiving the 2nd dose of the covid vaccine. Client denies travel out of the [place] in the last 14 days. At this time, the client does not indicate any symptoms associated with coronavirus-19. Ebola Screen: Patient denies travel to an Ebola-affected area in the 21 days before illness onset. Initial Sepsis Screen: Does the patient meet any 2 criteria? HR > 90 bpm. No. Patient's initial sepsis screen is negative. Does the patient have a suspected source of infection? Yes: Skin breakdown/wound. Risk Assessment: Do you want to hurt yourself or someone else? Patient reports no desire to harm self or others. Onset of symptoms was February 06, 2022. 10:17 Method Of Arrival: Ambulatory ll1 10:17 Acuity: MEREDITH 4 ll1 Triage Assessment: 10:18 General: Appears uncomfortable, Behavior is cooperative, appropriate for age. Pain: ll1 Complains of pain in right hand Quality of pain is described as aching. Derm: Reports redness/swelling to RUE. Musculoskeletal: Circulation, motion, and sensation intact. Capillary refill < 3 seconds. Historical: - Allergies: 10:17 No Known Allergies; ll1 - PMHx: 10:17 TIA 2017; ll1 - PSHx: 10:17 hernia SX x 2; ll1 - Immunization history:: Client reports receiving the 2nd dose of the Covid vaccine. - Social history:: Smoking status: Patient denies any tobacco usage or history of. - Family history:: not pertinent. Screenin:38 Abuse screen: Denies threats or abuse. Nutritional screening: No deficits noted. ll1 Tuberculosis screening: No symptoms or risk factors identified. Fall Risk Total Rosas Fall Scale indicates No Risk (0-24 pts). Assessment: 12:03 Reassessment: No changes from previously documented assessment. Patient and/or family ll1 updated on plan of care and expected duration. Pain level reassessed. Patient is alert, oriented x 3, equal unlabored respirations, skin warm/dry/pink. Vital Signs: 10:17 BP 164 / 81; Pulse 100; Resp 17; Temp 98.4; Pulse Ox 97% on R/A; Weight 91.17 kg; ll1 Height 5 ft. 8 in. (172.72 cm); Pain 5/10; 12:35 BP 131 / 68; Pulse 68; Resp 16; Pulse Ox 97% ; ll1 10:17 Body Mass Index 30.56 (91.17 kg, 172.72 cm) ll1 ED Course: 10:01 Patient arrived in ED. mr 10:19 Triage completed. ll1 10:19 Arm band placed on. ll1 10:37 Boy Jonas MD is Attending Physician. fletcher 11:50 Alen Singh MD is Referral Physician. [facility] 12:02 Gwendolyn Dickey RN is Primary Nurse. ll1 12:39 Patient has correct armband on for positive identification. Cardiac monitoring not ll1 applicable on this patient. 12:39 No provider procedures requiring assistance completed. Patient did not have IV access ll1 during this emergency room visit. Administered Medications: 12:03 Drug: Motrin (ibuprofen) 800 mg Route: PO; ll1 19:08 Follow up: Response: No adverse reaction ll1 12:03 Drug: Bactrim (trimethoprim-sulfamethoxazole) (160 mg-800 mg (DS) 1 tablet Route: PO; ll1 19:08 Follow up: Response: No adverse reaction ll1 12:03 Drug: Ancef (cefazolin) 1 grams Route: IM; Site: left gluteus; ll1 19:07 Follow up: Response: No adverse reaction ll1 12:03 Drug: KeFLEX (cephalexin) 500 mg Route: PO; ll1 19:07 Follow up: Response: No adverse reaction ll1 Medication: 19:09 VIS not applicable for this client. ll1 Outcome: 11:52 Discharge ordered by . fletcher 12:39 Patient left the ED. ll1 12:39 Discharged to home ambulatory. ll1 12:39 Condition: stable 12:39 Discharge instructions given to patient, Instructed on discharge instructions, follow up and referral plans. medication usage, Demonstrated understanding of instructions, follow-up care, medications, Prescriptions given X 4. Signatures: Boy Jonas MD MD cha Rivera, Mary mr Lewis, Lynsay RN RN ll1
--- NOTE | 2022-02-09 11:53 | EDPHYS ---
Physician Documentation [facility] Name: Srinivasan Armstrong Age: 66 yrs Sex: Male : 1955 Arrival Date: 02/09/2022 Time: 10:01 Bed 10 Private MD: ED Physician Boy Jonas HPI: 02/09 11:42 This 66 yrs old Male presents to ER via Ambulatory with complaints of Hand fletcher Swelling. 11:42 The patient or guardian reports pain, swelling, tenderness. The complaints affect the fletcher right side which is dominant. Context: The problem was sustained at an unknown location. Onset: The symptoms/episode began/occurred 3 day(s) ago. Modifying factors: The symptoms are alleviated by elevation, holding still, ice/coldpack to affected area, the symptoms are aggravated by movement, dependent position. Associated signs and symptoms: The patient has no apparent associated signs or symptoms. Severity of symptoms: At their worst the symptoms were moderate, in the emergency department the symptoms are unchanged. The patient has not experienced similar symptoms in the past. Historical: - Allergies: 10:17 No Known Allergies; ll1 - PMHx: 10:17 TIA 2017; ll1 - PSHx: 10:17 hernia SX x 2; ll1 - Immunization history:: Client reports receiving the 2nd dose of the Covid vaccine. - Social history:: Smoking status: Patient denies any tobacco usage or history of. - Family history:: not pertinent. ROS: 11:42 Constitutional: Negative for fever, chills, and weight loss, Eyes: Negative for injury, fletcher pain, redness, and discharge, ENT: Negative for injury, pain, and discharge, Neck: Negative for injury, pain, and swelling, Cardiovascular: Negative for chest pain, palpitations, and edema, Respiratory: Negative for shortness of breath, cough, wheezing, and pleuritic chest pain, Abdomen/GI: Negative for abdominal pain, nausea, vomiting, diarrhea, and constipation, Back: Negative for injury and pain, : Negative for injury, bleeding, discharge, and swelling, Neuro: Negative for headache, weakness, numbness, tingling, and seizure, Psych: Negative for depression, anxiety, suicide ideation, homicidal ideation, and hallucinations, Allergy/Immunology: Negative for hives, rash, and allergies, Endocrine: Negative for neck swelling, polydipsia, polyuria, polyphagia, and marked weight changes, Hematologic/Lymphatic: Negative for swollen nodes, abnormal bleeding, and unusual bruising. 11:42 MS/extremity: Positive for erythema, pain, swelling, tenderness, of the palmar aspect of right wrist. Exam: 11:42 Constitutional: This is a well developed, well nourished patient who is awake, alert, fletcher and in no acute distress. Head/Face: Normocephalic, atraumatic. Eyes: Pupils equal round and reactive to light, extra-ocular motions intact. Lids and lashes normal. Conjunctiva and sclera are non-icteric and not injected. Cornea within normal limits. Periorbital areas with no swelling, redness, or edema. ENT: Nares patent. No nasal discharge, no septal abnormalities noted. Tympanic membranes are normal and external auditory canals are clear. Oropharynx with no redness, swelling, or masses, exudates, or evidence of obstruction, uvula midline. Mucous membranes moist. Neck: Trachea midline, no thyromegaly or masses palpated, and no cervical lymphadenopathy. Supple, full range of motion without nuchal rigidity, or vertebral point tenderness. No Meningismus. Chest/axilla: Normal chest wall appearance and motion. Nontender with no deformity. No lesions are appreciated. Cardiovascular: Regular rate and rhythm with a normal S1 and S2. No gallops, murmurs, or rubs. Normal PMI, no JVD. No pulse deficits. Respiratory: Lungs have equal breath sounds bilaterally, clear to auscultation and percussion. No rales, rhonchi or wheezes noted. No increased work of breathing, no retractions or nasal flaring. Abdomen/GI: Soft, non-tender, with normal bowel sounds. No distension or tympany. No guarding or rebound. No evidence of tenderness throughout. Back: No spinal tenderness. No costovertebral tenderness. Full range of motion. Neuro: Awake and alert, GCS 15, oriented to person, place, time, and situation. Cranial nerves II-XII grossly intact. Motor strength 5/5 in all extremities. Sensory grossly intact. Cerebellar exam normal. Normal gait. Psych: Awake, alert, with orientation to person, place and time. Behavior, mood, and affect are within normal limits. 11:42 Skin: Appearance: Color: normal in color, Temperature: normal temperature, Moisture: normal moisture, petechiae, not noted, ecchymosis, not noted, cellulitis, that is moderate, induration, is not appreciated, injury, is not appreciated. Vital Signs: 10:17 BP 164 / 81; Pulse 100; Resp 17; Temp 98.4; Pulse Ox 97% on R/A; Weight 91.17 kg; ll1 Height 5 ft. 8 in. (172.72 cm); Pain 5/10; 12:35 BP 131 / 68; Pulse 68; Resp 16; Pulse Ox 97% ; ll1 10:17 Body Mass Index 30.56 (91.17 kg, 172.72 cm) ll1 MDM: 10:37 Patient medically screened. fletcher 11:47 Differential diagnosis: contusion, abrasion, tendonitis. Data reviewed: vital signs, [facility] nurses notes. Data interpreted: monitoring tech: rate is 100 beats/min, rhythm is regular, Pulse oximetry: on room air is 97 %. Counseling: I had a detailed discussion with the patient and/or guardian regarding: the historical points, exam findings, and any diagnostic results supporting the discharge/admit diagnosis, the need for outpatient follow up, for definitive care, a hand specialist. 02/09 11:41 Order name: Ice pack; Complete Time: 19:07 [facility] 02/09 11:41 Order name: Sling; Complete Time: 19:07 [facility] Administered Medications: 12:03 Drug: Motrin (ibuprofen) 800 mg Route: PO; ll1 19:08 Follow up: Response: No adverse reaction ll1 12:03 Drug: Bactrim (trimethoprim-sulfamethoxazole) (160 mg-800 mg (DS) 1 tablet Route: PO; ll1 19:08 Follow up: Response: No adverse reaction ll1 12:03 Drug: Ancef (cefazolin) 1 grams Route: IM; Site: left gluteus; ll1 19:07 Follow up: Response: No adverse reaction ll1 12:03 Drug: KeFLEX (cephalexin) 500 mg Route: PO; ll1 19:07 Follow up: Response: No adverse reaction ll1 Disposition Summary: 02/09/22 11:52 Discharge Ordered Location: Home fletcher Problem: new fletcher Symptoms: have improved fletcher Condition: Stable fletcher Diagnosis - Cellulitis and acute lymphangitis of other parts of limb - left forearm fletcher Followup: fletcher - With: Private Physician - When: 2 - 3 days - Reason: Recheck today's complaints, Continuance of care, Re-evaluation by your physician Followup: fletcher - With: Alen Singh MD - When: Tomorrow - Reason: Recheck today's complaints, Continuance of care, Re-evaluation by your physician Discharge Instructions: - Discharge Summary Sheet fletcher - Cellulitis, Adult fletcher - Cellulitis, Adult, [id number] [facility] Forms: - Medication Reconciliation Form [facility] - Thank You Letter fletcher - Antibiotic Education [facility] - Prescription Opioid Use [facility] Prescriptions: - Cephalexin 500 mg Oral Capsule - take 1 capsule by ORAL route every 6 hours for 10 days; 40 capsule; Refills: 0, [facility] Product Selection Permitted - Ibuprofen 600 mg Oral Tablet - take 1 tablet by ORAL route every 6 hours As needed take with food; 20 tablet; [facility] Refills: 0, Product Selection Permitted - Bactrim DS 800-160 mg Oral Tablet - take 1 tablet by ORAL route every 12 hours for 10 days; 20 tablet; Refills: 0, [facility] Product Selection Permitted - Tylenol-Codeine #3 300 mg-30 mg Oral - take 2 tablet by ORAL route every 6 hours; 20 tablet; Refills: 0, Product [facility] Selection Permitted Signatures: Boy Jonas MD MD cha Lewis, Lynsay RN RN ll1
[2022-02-09] MEDS ORDERED: CEPHALEXIN 250 MG CAP ONE (11:59)
[2022-02-09] MEDS ORDERED: CEFAZOLIN SODIUM 1 GM/VIAL ONE (11:59)
[2022-02-09] MEDS ORDERED: IBUPROFEN 400 MG TAB ONE (12:00)
[2022-02-09] MEDS ORDERED: SMZ./TMP. 800/160 MG TABLET ONE (12:00)
[2022-02-09] MEDS ORDERED: WATER FOR INJ,STERILE 10 ML ONE (12:00)
[2022-02-09 12:56] VITALS: BP 164/81; TEMP 98.4; O2SAT 97
== END 2022-02-09 12:39 | disposition home or self-care (01) ==
LOC: ER 09:58
DX: L03.114 Cellulitis of left upper limb (principal); I89.1 Lymphangitis
CPT/HCPCS: 96372; 99283; J0690